=== PATIENT | male | born 1980 | race Caucasian/White ===

== ENCOUNTER 2021-03-24 11:04 | Outpatient (REF) | payer BC, SELFPAY ==
[2021-03-24 19:32] LABS: Calculated LDL 237 mg/dL (<100); Cholesterol 309 mg/dL (<200); HDL Cholesterol 42 mg/dL (40-60); Triglyceride 153 mg/dL (<150)
== END 2021-03-24 11:05 | disposition home or self-care (01) ==
LOC: NCHCN 11:04
PROVIDERS: PCP Family Medicine; Visit Provider Nurse Practitioner Family
DX: E78.5 Hyperlipidemia, unspecified (principal)
CPT/HCPCS: 80061

== ENCOUNTER 2021-09-26 08:38 | Outpatient (REF) | payer BC, SELFPAY ==
[2021-09-26 14:06] LABS: Calculated LDL 95 mg/dL (<100); Cholesterol 168 mg/dL (<200); HDL Cholesterol 54 mg/dL (40-60); Triglyceride 99 mg/dL (<150)
== END 2021-09-26 08:39 | disposition home or self-care (01) ==
LOC: NCHCN 08:38
PROVIDERS: PCP Family Medicine; Visit Provider Nurse Practitioner Family
DX: E78.5 Hyperlipidemia, unspecified (principal)
CPT/HCPCS: 80061

== ENCOUNTER 2023-04-16 20:19 | Outpatient (REF) | payer BC, SELFPAY ==
[2023-04-16 17:34] LABS: Calculated LDL 105 mg/dL (<100); Cholesterol 169 mg/dL (<200); HDL Cholesterol 48 mg/dL (40-60); Triglyceride 84 mg/dL (<150)
== END 2023-04-16 20:20 | disposition home or self-care (01) ==
LOC: NCHCN 20:19
PROVIDERS: PCP Family Medicine; Visit Provider Family Medicine
DX: R73.03 Prediabetes (principal); E78.5 Hyperlipidemia, unspecified
CPT/HCPCS: 80061; 83036

== ENCOUNTER 2024-04-21 18:22 | Outpatient (REF) | payer BC, SELFPAY ==
[2024-04-21 16:57] LABS: Hemoglobin A1C 5.7 % (<5.7)
[2024-04-21 18:02] LABS: ALT 53 U/L (16-63); AST 26 U/L (15-37); Alkaline Phosphatase 104 U/L (46-116); Anion Gap 10.7 mmol/L (3-11); BUN 14 mg/dL (7-18); Bilirubin, Total 0.36 mg/dL (0.2-1.0); CO2 27.3 mmol/L (21.0-32.0); Calculated LDL 89 mg/dL (<100); Chloride 106 mmol/L (98-107); Cholesterol 167 mg/dL (<200); Estimated GFR 95.77 (mL/min/1.73m2); Glucose 111 mg/dL (74-106); HDL Cholesterol 57 mg/dL (40-60); Potassium 4.3 mmol/L (3.5-5.1); Sodium 144 mmol/L (136-145); Total Protein 7.8 g/dL (6.4-8.2); Triglyceride 109 mg/dL (<150)
--- OUTSIDE RECORDS SUMMARY | 2024-04-21 18:24 | XMS_ITS | Patient Health Record ---
Author Organization [facility] Address [address] [place] [address] Care Team Providers Care Senior Director Creative Services Name Role Phone Laci Metzger [phone] REASON FOR REFERRAL No Information PLAN OF TREATMENT No Information Insurance Providers Payer Name Payer Address Payer Phone Subscriber Number Group Number Insured Name Patient Relationship to Insured Coverage Start Date Coverage End Date [place] [address] JESUS ALCANTAR Self - patient is the insured
== END 2024-04-21 18:23 | disposition home or self-care (01) ==
LOC: NCHCN 18:22
PROVIDERS: PCP Family Medicine; Visit Provider Nurse Practitioner Family
DX: E78.5 Hyperlipidemia, unspecified (principal); R73.03 Prediabetes
CPT/HCPCS: 80053; 80061; 83036

== ENCOUNTER 2025-04-23 10:58 | Outpatient (REF) | payer BC, SELFPAY ==
[2025-04-23 16:32] LABS: ALT 57 U/L (16-63); AST 23 U/L (15-37); Albumin 4.3 g/dL (3.4-5.0); Alkaline Phosphatase 94 U/L (46-116); Anion Gap 11.0 mmol/L (3-11); BUN 16 mg/dL (7-18); Bilirubin, Total 0.5 mg/dL (0.2-1.0); CO2 26.0 mmol/L (21.0-32.0); Calcium 9.1 mg/dL (8.5-10.1); Chloride 103 mmol/L (98-107); Estimated GFR 84.89 (mL/min/1.73m2); Glucose 102 mg/dL (74-106); Potassium 4.2 mmol/L (3.5-5.1); Sodium 140 mmol/L (136-145); Total Protein 7.6 g/dL (6.4-8.2)
[2025-04-23 16:55] LABS: Hemoglobin A1C 5.8 % (<5.7)
== END 2025-04-23 10:59 | disposition home or self-care (01) ==
LOC: NCHCN 10:58
PROVIDERS: PCP Family Medicine; Visit Provider Family Medicine
DX: R73.03 Prediabetes (principal)
CPT/HCPCS: 80053; 83036